=== PATIENT | female | born 1945 | race African-American/Black ===

== ENCOUNTER 2022-05-01 12:53 | Inpatient (IN) | payer OTHER, MEDICAID ==
[~2022-05-01] VITALS: Ht 177.8 cm; Wt 75.4 kg
[2022-05-01 14:11] LABS: Basophils # (auto) 0 10 ^3/uL (0-0.2); Basophils % (auto) 0.7 % (0.0-2.0); Eosinophils # (auto) 0 10 ^3/uL (0-0.8); Eosinophils % (auto) 0.4 % (0.0-7.0); Hemoglobin 9.5 g/dL (12.2-16.2); Lymphocytes # (auto) 0.5 10 ^3/uL (0.4-5.4); Lymphocytes % (auto) 20.5 % (10.0-50.0); Mean Corpuscular Hemoglobin 29.4 pg (28.0-32.0); Mean Corpuscular Hgb Conc. 33.7 g/dL (32.0-36.0); Monocytes # (auto) 0.2 10 ^3/uL (0-1.3); Monocytes % (auto) 6.8 % (0.0-12.0); Neutrophils # (auto) 1.7 10 ^3/uL (1.6-8.6); Neutrophils % (auto) 71.6 % (37.0-80.0); Nucleated Red Blood Cells % 0.6 %; Red Blood Cells 3.22 10^6/uL (4.0-5.20); Red Cell Distribution Width 17.7 % (11.8-14.3); White Blood Cell 2.4 10^3/uL (4.4-10.8)
[2022-05-01 14:25] LABS: Albumin 3.1 g/dL (3.4-5.0); Calcium 7.9 mg/dL (8.5-10.1)
[2022-05-01 14:42] LABS: BUN/Creatinine Ratio 11.4 (10.0-20.0); Bilirubin, Total 1.5 mg/dL (0.2-1.0)
[2022-05-01 14:45] LABS: Potassium 2.6 mmol/L (3.5-5.1)
[2022-05-01] MEDS ORDERED: POTASSIUM CHL 20 Meq TABLET PO ONE (16:00)
[2022-05-01] MEDS ORDERED: POTASSIUM CHL 20MEQ/100ML 100 ML IV ONE (16:00)
[2022-05-01] MEDS ORDERED: PANTOPRAZOLE 40 MG/10 ML VIAL INJ IV ONE (17:15)
[2022-05-01] MEDS ORDERED: NITROGLYCERIN 0.4 MG SL TAB SL PRN (17:15)
[2022-05-01] MEDS ORDERED: DEXTROSE (50%) 50ML SYRG IV PRN (17:15)
[2022-05-01] MEDS ORDERED: ACETAMINOPHEN 325 MG TAB PO PRN (17:15)
[2022-05-01] MEDS ORDERED: MORPHINE SULFATE INJ 2 MG/ml SYRG IV PRN (17:15)
[2022-05-01] MEDS ORDERED: FURO80TA3 PO (17:22)
[2022-05-01] MEDS ORDERED: GLIP10TA9 PO (17:22)
[2022-05-01] MEDS ORDERED: AMLO-496 PO (17:22)
[2022-05-01] MEDS ORDERED: LISI-716 PO (17:22)
[2022-05-01] MEDS ORDERED: CLOP75TA70 PO (17:22)
[2022-05-01] MEDS ORDERED: TRIO1TP TOP (17:22)
[2022-05-01] MEDS ORDERED: ONDA-180 PO (17:22)
[2022-05-01] MEDS ORDERED: METF-370 PO (17:22)
[2022-05-01] MEDS ORDERED: ATOR-47 PO (17:22)
[2022-05-01] MEDS: SODIUM CHLORIDE 0.9% 1,000 ML IV SCH (22:26)
[2022-05-01] MEDS: ACCU-CHEK COMFORT CURVE STRIP VI SCH (22:26)
[2022-05-01] MEDS: LISINOPRIL 10 MG TAB PO SCH (22:26)
[2022-05-01] MEDS: InsuLIN REG 1unit/0.01ml Soln (100units/ml) SC SCH (22:29)
[2022-05-02] MEDS: ACCU-CHEK COMFORT CURVE STRIP VI SCH ×4 (06:26→22:08)
[2022-05-02] MEDS: InsuLIN REG 1unit/0.01ml Soln (100units/ml) SC SCH ×4 (06:27→22:58)
[2022-05-02 06:29] LABS: Basophils # (auto) 0 10 ^3/uL (0-0.2); Eosinophils # (auto) 0 10 ^3/uL (0-0.8); Eosinophils % (auto) 0.7 % (0.0-7.0); Hematocrit 24.5 % (36.0-46.0); Hemoglobin 8.3 g/dL (12.2-16.2); Lymphocytes # (auto) 0.7 10 ^3/uL (0.4-5.4); Lymphocytes % (auto) 26.4 % (10.0-50.0); Mean Corpuscular Hemoglobin 29.7 pg (28.0-32.0); Mean Corpuscular Hgb Conc. 34.1 g/dL (32.0-36.0); Mean Corpuscular Volume 87.1 fL (80.0-100.0); Monocytes # (auto) 0.2 10 ^3/uL (0-1.3); Monocytes % (auto) 9.4 % (0.0-12.0); Neutrophils # (auto) 1.6 10 ^3/uL (1.6-8.6); Neutrophils % (auto) 62.5 % (37.0-80.0); Nucleated Red Blood Cells % 0.6 %; Red Blood Cells 2.81 10^6/uL (4.0-5.20); Red Cell Distribution Width 18.2 % (11.8-14.3); White Blood Cell 2.6 10^3/uL (4.4-10.8)
[2022-05-02 06:53] LABS: Albumin 2.8 g/dL (3.4-5.0); BUN/Creatinine Ratio 17.9 (10.0-20.0); Bilirubin, Total 1.6 mg/dL (0.2-1.0); Calcium 7.5 mg/dL (8.5-10.1)
[2022-05-02 07:00] LABS: Potassium 2.6 mmol/L (3.5-5.1)
[2022-05-02] MEDS ORDERED: POTASSIUM CHL 20 Meq TABLET PO ONE ×2 (07:15→20:00)
[2022-05-02] MEDS: SODIUM CHLORIDE 0.9% 1,000 ML IV SCH (07:38)
[2022-05-02] MEDS ORDERED: PANTOPRAZOLE 40 MG/10 ML VIAL INJ IV SCH (10:00)
[2022-05-02] MEDS: amLODIPine BESYLATE 5 MG TAB PO SCH (10:20)
[2022-05-02] MEDS: CLOPIDOGREL BISULFATE 75 MG TAB PO SCH (10:21)
[2022-05-02] MEDS: LISINOPRIL 10 MG TAB PO SCH ×2 (10:22→22:00)
[2022-05-02] MEDS: ATORVASTATIN 20 MG TAB PO SCH (10:24)
[2022-05-02] MEDS: ENOXAPARIN SOD 40 MG/0.4 ML SYRINGE SC SCH (10:24)
[2022-05-02] MEDS ORDERED: POLYETHYLENE GLYCOL 17 GM PWDR PO ONE (16:15)
[2022-05-02] MEDS ORDERED: MAGNESIUM OXIDE 400 MG TAB PO ONE (16:15)
[2022-05-02] MEDS ORDERED: POTASSIUM CHLORIDE 40 MEQ, LIDOCAINE 1% (LOCAL ANESTH.) 4 ML in SODIUM CHL 0.9% 250 ML IV ONE (17:00)
[2022-05-02] MEDS: MAGNESIUM SULFATE 1GM/100ML 100 ML IV SCH ×2 (18:26→20:23)
[2022-05-02 20:40] LABS: Urine Bacteria FEW /hpf (None Seen); Urine Blood Negative /uL (Negative); Urine Mucus FEW (None Seen); Urine WBC 2 /hpf (0 - 5)
[2022-05-02 22:00] VITALS: BP 108/49
[2022-05-03 05:00] VITALS: BP 133/75
[2022-05-03] MEDS: ACCU-CHEK COMFORT CURVE STRIP VI SCH ×2 (06:21→11:39)
[2022-05-03] MEDS: InsuLIN REG 1unit/0.01ml Soln (100units/ml) SC SCH ×2 (06:28→11:39)
[2022-05-03 08:50] VITALS: BP 136/55
[2022-05-03 09:21] LABS: Calcium 8.3 mg/dL (8.5-10.1); Potassium 3.6 mmol/L (3.5-5.1)
[2022-05-03 09:25] LABS: BUN/Creatinine Ratio 10.2 (10.0-20.0); Magnesium 1.7 mg/dL (1.6-2.6)
[2022-05-03] MEDS: CLOPIDOGREL BISULFATE 75 MG TAB PO SCH (09:34)
[2022-05-03] MEDS: ENOXAPARIN SOD 40 MG/0.4 ML SYRINGE SC SCH (09:34)
[2022-05-03] MEDS: amLODIPine BESYLATE 5 MG TAB PO SCH (09:34)
[2022-05-03] MEDS: ATORVASTATIN 20 MG TAB PO SCH (09:34)
[2022-05-03 09:35] LABS: Ferritin 96.9 ng/mL (10-322); Folate (Folic Acid) 6.74 ng/mL (5.38-24)
[2022-05-03] MEDS: LISINOPRIL 10 MG TAB PO SCH (09:35)
[2022-05-03 09:36] LABS: Thyroid Stimulating Hormone 0.44 uIU/mL (0.358-3.74)
[2022-05-03 10:19] LABS: % Iron Saturation 9.7 % (15-50)
[2022-05-03] MEDS ORDERED: MAGNESIUM OXIDE 400 MG TAB PO ONE (11:15)
[2022-05-03] MEDS ORDERED: SODIUM FERR GLUC 62.5MG/5ML 125 MG in SODIUM CHL 0.9% 100 ML IV ONE (11:15)
[2022-05-03] MEDS ORDERED: ERGOCALCIFEROL 50,000 UNIT(1.25MG) CAP PO SCH (11:15)
[2022-05-03] MEDS ORDERED: POTASSIUM CHL 20 Meq TABLET PO ONE (11:15)
[2022-05-03] MEDS ORDERED: CYANOCOBALAMIN (B-12) 1000 MCG/1 ML VIAL IM ONE (11:15)
[2022-05-03] MEDS ORDERED: FERR-7 PO (11:18)
[2022-05-03] MEDS ORDERED: ERGO1CAP23 PO (11:18)
[2022-05-03] MEDS ORDERED: CYAN1TAB14 PO (11:18)
[2022-05-03] MEDS ORDERED: FOLI1TAB6 PO (11:19)
[2022-05-03] MEDS ORDERED: FOLIC ACID 1 MG in D5W 5% 50 ML INJ ONE (11:30)
[2022-05-03 13:00] VITALS: BP 125/52
[2022-05-03 15:35] VITALS: BP 125/52
[2022-05-03] MEDS ORDERED: POLYETHYLENE GLYCOL 17 GM PWDR PO PRN (16:15)
== END 2022-05-03 16:20 | disposition home or self-care (01) | DRG 637 ==
LOC: ER 12:53 → EDBD 12:53 → TELE 17:21 → TELE-CENTR 05-02 21:55
PROVIDERS: ADMIT Nurse Practitioner Family; ATTEND Internal Medicine
DX: E11.649 Type 2 diabetes mellitus with hypoglycemia without coma (principal); E43 Unspecified severe protein-calorie malnutrition; E78.5 Hyperlipidemia, unspecified; E87.6 Hypokalemia; Z20.822 Contact with and (suspected) exposure to COVID-19; D64.9 Anemia, unspecified; I10 Essential (primary) hypertension; Z85.3 Personal history of malignant neoplasm of breast; Z90.710 Acquired absence of both cervix and uterus; Z92.21 Personal history of antineoplastic chemotherapy; Z79.84 Long term (current) use of oral hypoglycemic drugs; Z68.23 Body mass index [BMI] 23.0-23.9, adult
CPT/HCPCS: 36415; 71046; 80048; 80053; 81001; 82306; 82607; 82728; 82746; 82962; 83036; 83540; 83550; 83615; 83735; 84132; 84443; 85025; 85045; 87426; 93005; C9113; G0378; J1815; J2001; J3480; J7060